=== PATIENT | male | born 1975 | race Caucasian/White ===

== ENCOUNTER 2018-02-07 14:39 | Emergency (ER) | payer MEDICAID ==
[~2018-02-07] VITALS: Ht 180.3 cm; Wt 85.3 kg
[2018-02-07 14:58] VITALS: Ht 180.3 cm; Wt 85.3 kg
[2018-02-07 15:54] LABS: PLATELET COUNT 295 x10^3mcL (130-400); RED CELL DISTRIBUTION WIDTH 12.7 % (11.5-14.5)
[2018-02-07 15:58] LABS: BASOPHIL % 0 % (0-2)
[2018-02-07 16:00] LABS: CALCIUM 8.8 mg/dL (8.5-10.1); CARBON DIOXIDE 25.5 mmol/L (21-32); CREATININE SERUM 1.6 mg/dL (0.7-1.3); POTASSIUM SERUM 3.1 mmol/L (3.5-5.1)
[2018-02-07 16:04] LABS: ALBUMIN 4.1 g/dL (3.4-5.0); BILIRUBIN TOTAL 1.5 mg/dL (0.20-1.00); TOTAL PROTEIN, SERUM 7.8 g/dL (6.4-8.2)
[2018-02-07 18:08] VITALS: BP 137/94
== END 2018-02-07 18:08 | disposition home or self-care (01) ==
LOC: ED 14:39
PROVIDERS: Specialist
DX: N23 Unspecified renal colic (principal); J45.909 Unspecified asthma, uncomplicated; Z88.5 Allergy status to narcotic agent
CPT/HCPCS: 83880; J1885; J2405; J3010; J7030

== ENCOUNTER 2018-03-27 23:20 | Emergency (ER) | payer MEDICAID ==
[2018-03-28 00:39] LABS: BASOPHIL % 0.3 % (0-2); PLATELET COUNT 253 x10^3mcL (130-400); RED CELL DISTRIBUTION WIDTH 13.8 % (11.5-14.5)
[2018-03-28 00:44] LABS: CALCIUM 9.1 mg/dL (8.5-10.1); CARBON DIOXIDE 26.7 mmol/L (21-32); CHLORIDE SERUM 105 mmol/L (98-107); CREATININE SERUM 1.1 mg/dL (0.7-1.3); GFR1 > 60 mL/min; GLUCOSE SERUM 97 mg/dL (74-106); POTASSIUM SERUM 3.2 mmol/L (3.5-5.1); SODIUM SERUM 140 mmol/L (136-145)
[2018-03-28 00:51] LABS: ALBUMIN 3.3 g/dL (3.4-5.0); ALKALINE PHOSPHATASE 72 U/L (46-116); ALT/SGPT 28 U/L (16-63); AST/SGOT 11 U/L (15-37); BILIRUBIN TOTAL 0.3 mg/dL (0.20-1.00); TOTAL PROTEIN, SERUM 6.7 g/dL (6.4-8.2)
[2018-03-28 02:21] VITALS: BP 134/91
== END 2018-03-28 02:21 | disposition home or self-care (01) ==
LOC: ED 23:20
PROVIDERS: Emergency Medicine
DX: N20.0 Calculus of kidney (principal); J45.909 Unspecified asthma, uncomplicated; Z87.442 Personal history of urinary calculi; Z88.5 Allergy status to narcotic agent
CPT/HCPCS: J1885; J7030; Q0092